=== PATIENT | male | born 1970 | race Caucasian/White ===

== ENCOUNTER 2024-04-30 08:46 | Emergency (ER) | payer SELFPAY ==
[2024-04-30] VITALS (23 sets, daily range): BP systolic 123–161; BP diastolic 73–90; PULSE 74–104; TEMP 36.7; O2SAT 94–99; BMI 29.8
--- NOTE | 2024-04-30 08:55 | ED.GENADUL1 ---
HPI HPI - General Adult General Chief complaint: Abdominal Pain Stated complaint: ABDOMINAL PAIN Time Seen by Provider: 04/30/24 08:53 Source: patient Mode of arrival: walk-in Limitations: no limitations History of Present Illness HPI narrative: Patient presenting to the emergency department for evaluation of not feeling well. Patient states that he went to urgent care sometime in January, was told he had pneumonia. He states that he was having shortness of breath, cough, white and green sputum production. Shortness of breath. They told him he had pneumonia, he states he did not do a chest x-ray, start him on a Z-Ezio. States that he felt better within a couple weeks. 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 He states that he improved over the first week. But he was still feeling winded, and states that whenever he was walking back and forth from his truck to work he started feeling short of breath. Patient states he went back to the urgent care, requested another Z-Ezio, they charged him $100 and discharged him and he said they did not do anything for him. Patient states that he still having coughing, shortness of breath that has been ongoing since January. Patient states that he now having abdominal pain, left side of the ribs, left upper quadrant, states whenever he has coughing fits related things he started taking some steroids unclear on the dose or how frequently he takes it, patient states that he is intermittently taking steroids. Patient has no leg pain, calf pain, calf swelling, leg swelling. States has not been having any fevers, chills. No other complaints at this time Related Data Previous Rx's ?Medication ?Instructions ?Recorded levofloxacin 750 mg tablet 750 mg PO DAILY 7 days #7 tabs 04/30/24 metronidazole 500 mg tablet 500 mg PO Q8H 7 days #21 tabs 04/30/24 Allergies Allergy/AdvReac Type Severity Reaction Status Date / Time No Known Drug Allergies Allergy Verified 04/30/24 08:49 Opioid HPI Opioid Management Most Recent Opioid Data: Last Pain Scale 6 04/30/24 09:19 Last MAR Pain Assessment 04/30/24 09:19 Review of Systems ROS Narrative Negative unless otherwise stated in HPI PFSH PFSH Social History Little interest or pleasure in doing things: not at all Feeling down, depressed, or hopeless: not at all Exam Narrative Exam Narrative: General: NAD, AAOx3, no distress Neck: Supple, no LAD, negative Kernig/Brudzinski, non meningeal, no bruit Respiratory: respiratory effort normal, speaks in full sentences, no tripod position, no accessory muscle use. Lungs clear to auscultation without rhonchi, wheezes, rales, tenderness to the mid axillary line inferior ribs Cardiac: Regular rhythm, tachycardic, no edema, regular s1/s2, no m/g/r Abdomen: Soft, nondistended, no tenderness was elicited. No evidence of fluid wave. No pulsatile masses on exam, rebound tenderness, Hitchcock sign or pain over Mcburney's point. Constitutional Vital Signs, click to edit/add: Last Vital Signs Temp 98.1 F 04/30/24 08:50 Pulse 74 04/30/24 11:40 Resp 21 H 04/30/24 11:40 BP 134/77 04/30/24 11:30 Pulse Ox 97 04/30/24 11:40 O2 Del Method Room Air 04/30/24 08:59 Course Vital Signs Vital signs: Vital Signs Temperature 98.1 F 04/30/24 08:50 Pulse Rate 104 H 04/30/24 08:50 Respiratory Rate 18 04/30/24 08:50 Blood Pressure 161/90 H 04/30/24 08:50 Pulse Oximetry 98 04/30/24 08:50 Oxygen Delivery Method Room Air 04/30/24 08:50 Temperature 98.1 F 04/30/24 08:50 Pulse Rate 74 04/30/24 11:40 Respiratory Rate 21 H 04/30/24 11:40 Blood Pressure 134/77 04/30/24 11:30 Pulse Oximetry 97 04/30/24 11:40 Oxygen Delivery Method Room Air 04/30/24 08:59 Medical Decision Making [facility] Narrative Medical decision making narrative: [facility] Patient with history as above presented with cough, shortness of breath, upper abdominal, rib pain. History obtained from patient Patient was nontoxic, stable. Ambulatory. Exam as above. EKG reviewed. Labs reviewed. Independently reviewed imaging. Reviewed external records. Differential diagnosis considered. Overall presentation is consistent with []. Low suspicion for []. Patient was treated with [] with improvement in symptoms. Consideration was given for admission, but the patient was stable for outpatient management. Disposition: Discussed need to follow up diagnostics, including incidental findings. Discharged with instructions to obtain outpatient follow up of patient's symptoms and findings, with strict return precautions if patient develops new or worsening symptoms. 919 it was noted that time the patient did meet for potential sepsis criteria. Lactate and blood cultures were added. I do not believe patient is septic, I believe his leukocytosis is likely reactionary from the steroids he is taking. 1205 D/w Sheree. He is here wednesday, would recommend admission, consulting colorectal surgery, and he will see patient on Wednesday, please add any CEA level, and hopefully arrange for colorectal surgery to obtain tissue sampling [address] Sanz, general surgery. He states he can see patient in the office tomorrow, office is open at 8 AM, clear liquids tomorrow, he will start bowel prep. He will do the scope as an outpatient on Wednesday, patient can be any preop area and see Dr. Bentley at that time as well. 1224 discussed with patient and daughter at bedside. They are in agreement with plan of care. Clear liquids tomorrow, they will go to the office and start bowel prep. Notified general surgery again at this time. He will start bowel prep after being seen in the office tomorrow, and then on Wednesday see oncology and general surgery for scope and further discussions. Medical Records Medical records reviewed: Yes I reviewed the patient's medical records Lab Data Lab results reviewed: Yes I reviewed the patient's lab results Labs: Lab Results 04/30/24 04/30/24 Range/Units 08:55 11:53 WBC 13.7 H (4.0-11.0) 10^3/uL RBC 4.66 L (4.70-6.10) 10^6/uL Hgb 12.6 L (14.0-18.0) g/dL Hct 39.9 L (42.0-54.0) % MCV 85.6 (80.0-94.0) fL MCH 27.0 (25.9-34.0) pg MCHC 31.6 (29.9-35.2) g/dL RDW 13.6 (11.0-15.0) % Plt Count 262 (150-450) 10^3/uL MPV 9.2 L (9.5-13.5) fL Neut % (Auto) 74.2 (43.0-75.0) % Lymph % (Auto) 15.4 L (20.5-60.0) % [place] % (Auto) 8.2 (1.7-12.0) % Eos % (Auto) 0.5 L (0.9-7.0) % Baso % (Auto) 0.3 (0.2-2.0) % Neut # (Auto) 10.1 H (1.4-6.5) 10^3/uL Lymph # (Auto) 2.1 (1.2-3.8) 10^3/uL [place] # (Auto) 1.1 H (0.3-0.8) 10^3/uL Eos # (Auto) 0.1 (0.0-0.7) 10^3/uL Baso # (Auto) 0.0 (0.0-0.1) 10^3/uL Abs Immat Gran (auto) 0.19 H (0.00-0.03) 10^3/uL Imm/Tot Granulo (auto) 1.4 H (0.0-0.5) % Sodium 138 (136-145) mmol/L Potassium 3.8 (3.5-5.1) mmol/L Chloride 101 (98-107) mmol/L Carbon Dioxide 29.0 (21.0-32.0) mmol/L Anion Gap 11.8 BUN 17.0 (7.0-18.0) mg/dL Creatinine 1.34 H (0.70-1.30) mg/dL Est GFR ( Amer) >60 (>=60 mL/min/1.73m^2) Est GFR (Non-Af Amer) 56 L (>=60 mL/min/1.73m^2) BUN/Creatinine Ratio 12.7 Glucose 83 (74-106) mg/dL Lactate 2.7 H* 0.7 (0.4-2.0) mmol/L Calcium 9.3 (8.5-10.1) mg/dL Total Bilirubin 0.5 (0.2-1.0) mg/dL Direct Bilirubin 0.1 (0.0-0.2) mg/dL AST 20 (15-37) U/L ALT 23 (16-63) U/L Alkaline Phosphatase 109 (46-116) U/L Troponin I High Sens <4.0 L (4.0-76.1) pg/mL NT-Pro-B Natriuret Pep 36.0 (<=900.0) pg/mL Total Protein 6.5 (6.4-8.2) g/dL Albumin 3.0 L (3.4-5.0) g/dL Globulin 3.5 g/dL Albumin/Globulin Ratio 0.9 Lipase 25.0 (16.0-77.0) U/L ECG Data Attestation: I personally reviewed and interpreted this ECG as follows: Discharge Plan Discharge Chief Complaint: Abdominal Pain Clinical Impression: Cancer Patient Disposition: Home, Self-Care Time of Disposition Decision: 12:27 Prescriptions / Home Meds: New levofloxacin 750 mg tablet 750 mg PO DAILY 7 Days Qty: 7 0RF metronidazole 500 mg tablet 500 mg PO Q8H 7 Days Qty: 21 0RF Print Language: Maltese Instructions: Colonoscopy (DC) Additional Instructions: Follow-up with general surgery tomorrow as discussed. Follow-up with general surgery and hematology oncology on Wednesday as well Referrals: Angela Bentley MD [Physician] - 05/02/24 (Follow-up on Wednesday during her colonoscopy usually seen at that time.) Shaun Sanz DO [Physician] - 05/01/24 (Follow-up in office as discussed.) Physician,Non-Staff, [Primary Care Provider] - 1 week
--- NOTE | 2024-04-30 08:56 | ECG_ITS ---
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
--- NOTE | 2024-04-30 09:06 | CT_ITS ---
The [address] [address] Patient Name: CT RODAS MRN: [id number] date: 1970 Sex: M Assigned Patient Location: ER Current Patient Location: ER Accession/Order Number: [id number] Exam Date: 04/30/2024 09:25 Report Date: 04/30/2024 11:41 At the request of: ROS ELI Procedure: CT abdomen pelvis w con CT ABDOMEN AND PELVIS WITH CONTRAST: 04/30/2024 9:25 AM EDT Clinical Data: abdominal pain Comparison: No previous Contrast-enhanced helically acquired data per standard protocol. The lack of oral contrast medium to some extent hampers evaluation of the bowel. All CT scans at this facility use dose modulation, iterative reconstruction, and/or weight based dosing when appropriate to reduce radiation dose to as low as reasonably achievable. FINDINGS: LOWER THORAX: See today's chest CT report. LIVER: Multiple hypodense foci. These are of low to intermediate density and a few are mildly vaguely defined. These are in both lobes. The largest is peripherally on the right and measures 34 mm. SPLEEN:No acute findings. GB/BILIARY: No acute findings at CT PANCREAS: No acute findings. ADRENALS: No acute findings. KIDNEYS/URETERS: Kidneys are symmetric in size and overall density as examined in a single phase only. Tiny hypodense well-defined foci right kidney. 8mm well-defined focus mid pole left kidney. There is no hydronephrosis or hydroureter. VESSELS: No AAA. Portal veins are patent. SMV and splenic vein are patent. IMV is patent. ABDOMINAL NODES: No adenopathy. PELVIC NODES: No distinct evidence of adenopathy. BLADDER: No acute findings. REPRODUCTIVE: Prostate is mildly prominent. Seminal vesicles are symmetric. PERITONEUM: No free air. No free fluid. EXTRAPERITONEUM: No acute findings. BOWEL: No GI obstruction. There is heterogeneous circumferential thickening of the proximal descending colon extending over a longitudinal segment of 5 cm. The air column in this portion of the colon is narrowed. Modest amount stool within aspects of the colon. Moderate amount of ingested debris and some air in the stomach. BODY WALL: No acute findings. BONES: No acute findings. OTHER: None CT/CT abdomen pelvis w con IMPRESSION: 1. Constellation of findings as described. The likely is a colonic malignancy in the proximal descending colon with associated metastatic disease in the liver.. 2. Likely, small renal cysts. Electronically authenticated by: SLOANE SCHMITZ Date: 04/30/2024 11:41
--- NOTE | 2024-04-30 09:07 | CT_ITS ---
[address] [address] Patient Name: TC RODAS MRN: [id number] date: 1970 Sex: M Assigned Patient Location: ER Current Patient Location: .[facility] Accession/Order Number: [id number] Exam Date: 04/30/2024 09:25 Report Date: 04/30/2024 10:16 At the request of: ROS ELI Procedure: CT angio chest CT ANGIOGRAM THORACIC AORTA: INDICATION: cough, SOB, tachy. COMPARISON: None available. TECHNIQUE: Helical CT angiography was performed of the thoracic aorta after the administration of intravenous contrast. Noncontrast imaging was not performed. MIP (maximum intensity projection) images were performed. Dose reduction techniques were achieved by using automated exposure control and/or adjustment of mA and/or kV according to patient size and/or use of iterative reconstruction technique. FINDINGS: THORACIC AORTA: The thoracic aorta is normal in course and caliber, with no evidence of dissection. PULMONARY ARTERIES: No pulmonary artery filling defects. HEART/PERICARDIUM: Unremarkable. MEDIASTINAL/HILAR LYMPH NODES: No lymphadenopathy. ESOPHAGUS: Unremarkable. PLEURAL CAVITY: No pleural effusion or pneumothorax. LUNGS/AIRWAYS: There is bibasilar subsegmental atelectasis. There is a 4 mm nodular density in the right middle lobe with possible cavitation (series 4, image 50). CHEST WALL/AXILLA/LOWER NECK: Unremarkable. VISUALIZED UPPER ABDOMEN: There are ill-defined hypodense lesions in the liver measuring up to 3.6 cm suspicious for metastatic disease. BONES: No acute process. CT/CT angio chest IMPRESSION: 1. Ill-defined hypodense lesions in the liver highly suspicious for metastatic disease. 2. No evidence of pulmonary embolism or thoracic aortic dissection. 3. A 4 mm nodular density in the right middle lobe with possible cavitation. Electronically authenticated by: JOSE SPEAR Date: 04/30/2024 10:16
[2024-04-30 09:14] LABS: Basophils Percent Auto 0.3 % (0.2-2.0); Eosinophils Absolute Auto 0.1 10^3/uL (0.0-0.7); Eosinophils Percent Auto 0.5 % (0.9-7.0); Hematocrit 39.9 % (42.0-54.0); Hemoglobin 12.6 g/dL (14.0-18.0); Immature Granulocytes Abs Auto 0.19 10^3/uL (0.00-0.03); Immature Granulocytes Pct Auto 1.4 % (0.0-0.5); Lymphocytes Absolute Auto 2.1 10^3/uL (1.2-3.8); Lymphocytes Percent Auto 15.4 % (20.5-60.0); Mean Corpuscular HGB Conc 31.6 g/dL (29.9-35.2); Mean Corpuscular Volume 85.6 fL (80.0-94.0); Mean Platelet Volume 9.2 fL (9.5-13.5); Monocytes Absolute Auto 1.1 10^3/uL (0.3-0.8); Monocytes Percent Auto 8.2 % (1.7-12.0); Neutrophils Absolute Auto 10.1 10^3/uL (1.4-6.5); Neutrophils Percent Auto 74.2 % (43.0-75.0); Platelet Count 262 10^3/uL (150-450); Red Blood Count 4.66 10^6/uL (4.70-6.10); Red Cell Distribution Width 13.6 % (11.0-15.0); White Blood Count 13.7 10^3/uL (4.0-11.0)
[2024-04-30] MEDS: MORPHINE SULFATE 4 MG/ML VIAL IV (09:19)
[2024-04-30 09:39] LABS: Alanine Aminotransferase 23 U/L (16-63); Albumin Globulin Ratio 0.9; Alkaline Phosphatase 109 U/L (46-116); Anion Gap 11.8; Aspartate Amino Transferase 20 U/L (15-37); BUN Creatinine Ratio 12.7; Bilirubin Direct 0.1 mg/dL (0.0-0.2); Bilirubin Total 0.5 mg/dL (0.2-1.0); Calcium 9.3 mg/dL (8.5-10.1); Chloride 101 mmol/L (98-107); Estimated GFR (African America >60 (>=60 mL/min/1.73m^2); Estimated GFR (Non-African Ame 56 (>=60 mL/min/1.73m^2); Globulin 3.5 g/dL; Glucose 83 mg/dL (74-106); Potassium 3.8 mmol/L (3.5-5.1); Sodium 138 mmol/L (136-145); Total Protein 6.5 g/dL (6.4-8.2); Troponin I High Sensitivity <4.0 pg/mL (4.0-76.1)
[2024-04-30 09:44] LABS: Lactate/Lactic Acid 2.7 mmol/L (0.4-2.0)
[2024-04-30] MEDS: 0.9 % SODIUM CHLORIDE 1,000 ML 999 ML IV (09:50)
[2024-04-30] MEDS: AMPICILLIN SODIUM/SULBACTAM NA 1.5 GM in 0.9 % SODIUM CHLORIDE 50 ML IV (11:26)
[2024-04-30 12:17] LABS: Lactate/Lactic Acid 0.7 mmol/L (0.4-2.0)
[2024-04-30] MEDS: HYDROCODONE/ACET 5-325 MG TABLET 1 TAB PO (12:54)
== END 2024-04-30 12:58 | disposition home or self-care (01) ==
PROVIDERS: Emergency Provider Emergency Medicine
DX: C80.1 Malignant (primary) neoplasm, unspecified (principal)
CPT/HCPCS: 36415; 71275; 74177; 80053; 80076; 82378; 83605; 83690; 83880; 84484; 85025; 87040; 93005; 96365; 96375; 99285; J0295; J2270; Q9967

== ENCOUNTER 2024-05-02 06:18 | Day surgery (SDC) | payer MEDICAID, SELFPAY ==
[2024-05-02 06:25] VITALS: BP 134/74; PULSE 104; TEMP 36.4; O2SAT 95; BMI 29.6
[2024-05-02] MEDS: 0.9 % SODIUM CHLORIDE 500 ML 50 ML IV (07:17)
[2024-05-02 07:58] VITALS: BP 112/78; PULSE 82; TEMP 36.1; O2SAT 97
[2024-05-02 08:13] VITALS: BP 133/83; PULSE 78; O2SAT 97
[2024-05-02 08:33] VITALS: BP 126/78; PULSE 76; O2SAT 98
--- NOTE | 2024-05-02 15:40 | P.ON_ITS ---
Date of procedure: 05/02/24 Pre-op diagnosis: diagnostic colonoscopy Post-op diagnosis: same as pre-op (nearly obstructing colon mass at splenic flexure approx 60cm) Procedure: Previous colonoscopy: never procedure: diagnostic colonoscopy with biopsies The patient was given IV conscious sedation.? The patient's SPO2 remained above 90% throughout the procedure. The colonoscope was inserted per rectum and advanced under direct vision to the splenic flexure unable to pass large mass that was there.?The prep was adequate.? Findings: splenic flexure/Descending/Sigmoid colon: large circumferential mass and thickening of the colon with friable edges, cold forcep biopies taken, approx at 60cm Rectum/Anus: examined in normal and retroflexed positions and was normal Withdrawal Time was (minutes): 30 The colon was decompressed and the scope was removed.? The patient tolerated the procedure well. Recommendations/Plan: 1.? Appointment coordinated with oncologist for today given liver lesions and advanced local process in colon 2.? F/U Biopsies 3.? Discussed possible need for urgent surgery for obstructive symptoms vs referral to GI for stenting 4.? Discussed with oncology, patient to be presented at [facility] [[email or web address]] tumor board and possible early surgery there then chemo Anesthesia: MAC Surgeon: Shaun Sanz Estimated blood loss (mL): 5 Pathology: other (splenic flexure mass ) Condition: stable Disposition: PACU
== END 2024-05-02 08:40 | disposition home or self-care (01) ==
PROVIDERS: Visit Provider Surgery
PROC: (CPT 00811; principal; 2024-05-02 07:30)
DX: C18.5 Malignant neoplasm of splenic flexure (principal); I10 Essential (primary) hypertension; C18.9 Malignant neoplasm of colon, unspecified; C78.7 Secondary malignant neoplasm of liver and intrahepatic bile duct; R11.2 Nausea with vomiting, unspecified; F17.220 Nicotine dependence, chewing tobacco, uncomplicated; Z80.3 Family history of malignant neoplasm of breast
CPT/HCPCS: 00811; 45331; G0463; J2704

== ENCOUNTER 2024-05-16 07:32 | Outpatient (RCR) | payer SELFPAY | END 2024-05-25 23:59 | disposition home or self-care (01) | LOC: HEMC 07:32 | PROVIDERS: Visit Provider Internal Medicine Hematology & Oncology | DX: C18.9 Malignant neoplasm of colon, unspecified (principal); C78.7 Secondary malignant neoplasm of liver and intrahepatic bile duct; R11.2 Nausea with vomiting, unspecified; F17.220 Nicotine dependence, chewing tobacco, uncomplicated; Z80.3 Family history of malignant neoplasm of breast | CPT/HCPCS: G0463 ==

== ENCOUNTER 2024-05-29 14:32 | Outpatient (OUT) | payer MEDICAID, SELFPAY ==
--- NOTE | 2024-05-29 14:49 | PE_ITS ---
The [address] [address] Patient Name: CT RODAS MRN: [id number] date: 1970 Sex: M Assigned Patient Location: PETCT Current Patient Location: PETCT Accession/Order Number: [id number] Exam Date: 05/29/2024 14:49 Report Date: 06/03/2024 13:47 At the request of: ROXANN JOHNSON Procedure: PET skull to mid thigh PET/CT: HISTORY: Colorectal cancer. COMPARISON: CT angiogram chest, CT abdomen and pelvis 04/30/2024. TECHNIQUE: The patient was injected with 13.84 mCi of F-18 fluorodeoxyglucose (FDG), and an emission scan was performed from the base of the skull to the mid thigh. Noncontrast CT was performed for attenuation correction and anatomic localization. The blood glucose level was 101 mg/dl. The uptake time was 55 minutes. FINDINGS: HEAD AND NECK: There is a physiologic distribution of activity, with no hypermetabolic foci. CHEST: The SUV max of the mediastinum = 3.0 using the patient's body weight as the normalization method. The previously noted 4 mm right middle lobe pulmonary nodule is faintly seen on image 106 of this study and below resolution limits of PET. There is a physiologic distribution of activity. ABDOMEN AND PELVIS: There are multiple hypermetabolic masses throughout the liver including for example in the right hepatic lobe on image 124, SUV max 12.5 measuring 4.4 x 3.5 cm and in the left hepatic lobe on image 141, SUV max 14.1 measuring 4.3 x 2.9 cm. There is a hypermetabolic focus in the splenic hilum on image 147 with SUV max 16.4. There is no definite CT correlate. The previously noted mass in the descending colon is hypermetabolic, image 170, SUV max 24.7. There is a new stent in place within the descending colon. There is evidence of invasion into the surrounding left paracolic gutter with a hypermetabolic ill-defined opacity on image 170 with SUV max 18.6. There is a hypermetabolic left mid omental mass on image 181 with SUV max 18.2 measuring 2.8 x 2.2 cm. There is a hypermetabolic nodular density in the right pelvis on image 244, SUV max 22.2 measuring 1.7 x 1.3 cm. There is a hypermetabolic nodule in the right perirectal space on image 258, SUV max 21.9 measuring 1.2 x 1.2 cm. MUSCULOSKELETAL SYSTEM: There is a physiologic distribution of activity within the bone marrow, with no hypermetabolic foci. ADDITIONAL CT FINDINGS: There is a right chest central venous access port with tip in the SVC. There is mild atherosclerotic coronary artery calcification. There is mild pleural thickening or trace bilateral pleural effusions. The spleen is enlarged at 13 cm AP. The prostate gland is enlarged at 5.8 cm transverse. There is mild bladder wall thickening which may be due to underdistention, chronic outlet obstruction or cystitis. There is a small fat-containing left inguinal hernia. PET/PET skull to mid thigh IMPRESSION: 1. Hypermetabolic mass in the descending colon consistent with malignancy with invasion into the adjacent left paracolic gutter. 2. Hypermetabolic masses in the left omentum, the right pelvis and in the right perirectal space consistent with peritoneal carcinomatosis. 3. Hypermetabolic focus in the splenic hilum consistent with a metastasis. 4. Additional CT findings as described above. A previously noted 4 mm right middle lobe pulmonary nodule is below resolution limits of PET. Recommend attention on follow-up. Electronically authenticated by: TATIANA DICKSON Date: 06/03/2024 13:47
== END 2024-05-29 14:33 | disposition home or self-care (01) ==
LOC: PETCT 14:32
PROVIDERS: Visit Provider Internal Medicine Hematology & Oncology
DX: C18.9 Malignant neoplasm of colon, unspecified (principal); C78.7 Secondary malignant neoplasm of liver and intrahepatic bile duct; Z51.11 Encounter for antineoplastic chemotherapy; R11.2 Nausea with vomiting, unspecified; F17.220 Nicotine dependence, chewing tobacco, uncomplicated; R06.02 Shortness of breath
CPT/HCPCS: 78815; 99211; A9552; G0463

== ENCOUNTER 2024-06-15 07:23 | Outpatient (RCR) | payer MEDICAID, SELFPAY ==
[2024-05-30 10:19] VITALS: BP 123/80; PULSE 78; TEMP 36.9; O2SAT 97
[2024-05-30 10:48] LABS: Basophils Percent Auto 0.3 % (0.2-2.0); Eosinophils Absolute Auto 0.3 10^3/uL (0.0-0.7); Eosinophils Percent Auto 2.8 % (0.9-7.0); Hematocrit 36.4 % (42.0-54.0); Hemoglobin 11.3 g/dL (14.0-18.0); Lymphocytes Absolute Auto 1.6 10^3/uL (1.2-3.8); Lymphocytes Percent Auto 16.8 % (20.5-60.0); Mean Corpuscular Hemoglobin 25.7 pg (25.9-34.0); Mean Corpuscular Volume 82.9 fL (80.0-94.0); Mean Platelet Volume 9.2 fL (9.5-13.5); Monocytes Absolute Auto 0.9 10^3/uL (0.3-0.8); Monocytes Percent Auto 9.4 % (1.7-12.0); Neutrophils Absolute Auto 6.7 10^3/uL (1.4-6.5); Neutrophils Percent Auto 69.7 % (43.0-75.0); Platelet Count 295 10^3/uL (150-450); Red Blood Count 4.39 10^6/uL (4.70-6.10); Red Cell Distribution Width 13.4 % (11.0-15.0); White Blood Count 9.7 10^3/uL (4.0-11.0)
[2024-05-30 10:58] LABS: Alanine Aminotransferase 35 U/L (16-63); Albumin Globulin Ratio 0.7; Albumin Level 2.7 g/dL (3.4-5.0); Alkaline Phosphatase 136 U/L (46-116); Anion Gap 13.2; Aspartate Amino Transferase 25 U/L (15-37); BUN Creatinine Ratio 13.3; Bilirubin Total 0.4 mg/dL (0.2-1.0); Calcium 8.6 mg/dL (8.5-10.1); Carbon Dioxide 25.7 mmol/L (21.0-32.0); Chloride 103 mmol/L (98-107); Estimated GFR (African America >60 (>=60 mL/min/1.73m^2); Estimated GFR (Non-African Ame 59 (>=60 mL/min/1.73m^2); Globulin 3.8 g/dL; Glucose 94 mg/dL (74-106); Potassium 3.9 mmol/L (3.5-5.1); Sodium 138 mmol/L (136-145); Total Protein 6.5 g/dL (6.4-8.2)
[2024-05-30] MEDS: [UNRECOGNIZED DRUG - OTHER] IV (11:43)
[2024-05-30] MEDS: DEXAMETHASONE SODIUM PHOSPHATE IV (11:43)
[2024-05-30] MEDS: ONDANSETRON HCL IV (11:43)
[2024-05-30] MEDS: 0.9 % SODIUM CHLORIDE 250 ML 10 ML IV (11:44)
[2024-05-30] MEDS: DEXTROSE 5 % IN WATER 250 ML 50 ML IV (12:30)
[2024-05-30] MEDS: OXALIPLATIN IV (12:39)
[2024-05-30] MEDS: DEXTROSE 5% IV ×2 (12:39)
[2024-05-30] MEDS: LEUCOVORIN CALCIUM IV (12:39)
[2024-05-30] MEDS: WATER IV ×2 (12:39)
[2024-05-30] MEDS: FLUOROURACIL 1,000 MG/20 ML VIAL 900 MG IVP (14:48)
[2024-05-30] MEDS: FLUOROURACIL IV (15:04)
[2024-05-30] MEDS: SODIUM CHLORIDE 0.9% IV (15:04)
[2024-05-30 15:15] VITALS: BP 118/74; PULSE 70; TEMP 36.8; O2SAT 97
--- NOTE | 2024-05-30 15:31 | PC.NURSE ---
1019: Pt. to [facility] amb. for chemo treatment and office visit, accompanied by daughter. Weight obtained. Seated in recliner. VSS. Using sterile technique, right ant. chest port accessed per. MIKE Sandoval. Flushes easily with good blood return. Labs obtained as ordered. Pt. tolerated without c/o. Assessment completed. Pt. given [place] juice. Denies needs. 1100: Dr. Bentley in to see pt. 1143: Labs WNL to begin treatment. Pre-meds initiated at this time. Pt. denies needs. 1205: Pre-meds completed. 1239: Oxaliplatin and Leucovorin infusion initiated concurrently as ordered. Lunch tray ordered for pt. Informed pt. of abnormal s&s to watch for while receiving chemo. Instructed to notify this RN if occurs. Pt. and pt.'s daughter verbalize understanding. 1300: Tolerating infusion without c/o. Port site remains clear. Denies c/o or needs. Attempts to nap 1442: Oxaliplatin and Leucovorin completed without adverse reaction. 1448: 5-Fu, 900mg administered IVP over 7minutes at this time. Pt. without c/o. 1504: 5-FU cont. infusion pump initiated at this time. Clamps open. Secured with pouch attached around waist. Instructed pt. to keep clamps open and do not disconnect pump from port. Keep dry. Pt. relays understanding. Informed pt. what tie to return on for pump removal. Relays understanding. Reminded pt. and pt's daughter of adverse reactions to watch for and seek medical attention if needed. Both relay understanding. 1515: Pt. and daughter d/c'd amb. to home.
[2024-06-01 13:00] VITALS: BP 150/89; PULSE 74; TEMP 36.9; O2SAT 97
[2024-06-01] MEDS: SODIUM CHLORIDE 0.9% IV (13:47)
[2024-06-01] MEDS: LORAZEPAM 2 MG/ML VIAL 0.5 MG IV (13:47)
[2024-06-01] MEDS: ONDANSETRON HCL IV (13:47)
[2024-06-01] MEDS: 0.9 % SODIUM CHLORIDE 1,000 ML 1000 ML IV (13:48)
--- NOTE | 2024-06-01 14:18 | PC.NURSE ---
1300: Pt. to [facility] amb. accompanied by son, for chemo pump removal. Relays n/v over last 24hrs. with extreme fatigue. Seated in recliner. Dr. Bentley notified per text of pt. n/v. Chemo pump flat with no obvious fluid remaining in ball. Port flushed with saline. Pt. given ensure clear to try to sip on. Pt. compliant. Relays sensitivity to cold in mouth. Informed pt. of side effect of Oxaliplatin. Instructed to refrain from eating,drinking, or touching cold items. 1317: Dr. Bentley replys via text with new order for pt. Pt. and pts. son notified of plan of care. Both relay understanding. 1347: Medicated with Ativan, 0.5mg ivp, Zofran 8mg IVPB, and 0.9% NS 1000ML infusion initiated at this time as ordered. Pt. drank Ensure without c/o. Offered food, but declines. 1410: Pt. resting with eyes closed. Resp. even and non-labored. IVF cont.
[2024-06-01] MEDS: HEPARIN SODIUM (PORCINE) PF LOCK FLUSH 500 UNIT/5 ML SYRINGE IV (15:17)
--- NOTE | 2024-06-01 15:20 | PC.NURSE ---
1517:Therapy completed without adverse reaction. Denies nausea at this time. Port flushed with Heparin flush, see documentation. Trace bleeding to site, covered with dressing. Pt. tolerated without c/o. Several Ensure clear protein drinks sent with pt. D/c'd amb. to home with son.
[2024-06-06 11:45] LABS: Alanine Aminotransferase 39 U/L (16-63); Albumin Globulin Ratio 0.9; Albumin Level 3.2 g/dL (3.4-5.0); Alkaline Phosphatase 127 U/L (46-116); Anion Gap 14.5; Aspartate Amino Transferase 24 U/L (15-37); BUN Creatinine Ratio 7.4; Bilirubin Total 0.4 mg/dL (0.2-1.0); Calcium 8.8 mg/dL (8.5-10.1); Carbon Dioxide 26.9 mmol/L (21.0-32.0); Chloride 104 mmol/L (98-107); Estimated GFR (African America >60 (>=60 mL/min/1.73m^2); Estimated GFR (Non-African Ame >60 (>=60 mL/min/1.73m^2); Globulin 3.6 g/dL; Glucose 90 mg/dL (74-106); Potassium 4.4 mmol/L (3.5-5.1); Sodium 141 mmol/L (136-145); Total Protein 6.8 g/dL (6.4-8.2)
[2024-06-06 11:52] LABS: Basophils Percent Auto 0.3 % (0.2-2.0); Eosinophils Percent Auto 9.5 % (0.9-7.0); Hematocrit 37.4 % (42.0-54.0); Hemoglobin 11.9 g/dL (14.0-18.0); Immature Granulocytes Abs Auto 0.08 10^3/uL (0.00-0.03); Immature Granulocytes Pct Auto 0.8 % (0.0-0.5); Lymphocytes Absolute Auto 1.9 10^3/uL (1.2-3.8); Mean Corpuscular HGB Conc 31.8 g/dL (29.9-35.2); Mean Corpuscular Volume 81.8 fL (80.0-94.0); Mean Platelet Volume 9.2 fL (9.5-13.5); Monocytes Absolute Auto 0.5 10^3/uL (0.3-0.8); Monocytes Percent Auto 5.3 % (1.7-12.0); Neutrophils Absolute Auto 6.5 10^3/uL (1.4-6.5); Neutrophils Percent Auto 65.1 % (43.0-75.0); Platelet Count 287 10^3/uL (150-450); Red Blood Count 4.57 10^6/uL (4.70-6.10); Red Cell Distribution Width 13.4 % (11.0-15.0)
[2024-06-13] MEDS: 0.9 % SODIUM CHLORIDE 250 ML 100 ML IV (10:00)
[2024-06-13 10:32] VITALS: BP 135/80; PULSE 84; TEMP 36.5; O2SAT 98
[2024-06-13 10:49] LABS: Basophils Percent Auto 0.4 % (0.2-2.0); Eosinophils Absolute Auto 0.4 10^3/uL (0.0-0.7); Eosinophils Percent Auto 6.8 % (0.9-7.0); Hematocrit 36.3 % (42.0-54.0); Hemoglobin 11.2 g/dL (14.0-18.0); Immature Granulocytes Abs Auto 0.02 10^3/uL (0.00-0.03); Immature Granulocytes Pct Auto 0.4 % (0.0-0.5); Lymphocytes Absolute Auto 1.4 10^3/uL (1.2-3.8); Lymphocytes Percent Auto 24.8 % (20.5-60.0); Mean Corpuscular HGB Conc 30.9 g/dL (29.9-35.2); Mean Corpuscular Hemoglobin 25.6 pg (25.9-34.0); Mean Corpuscular Volume 83.1 fL (80.0-94.0); Monocytes Absolute Auto 0.7 10^3/uL (0.3-0.8); Monocytes Percent Auto 12.1 % (1.7-12.0); Neutrophils Percent Auto 55.5 % (43.0-75.0); Platelet Count 228 10^3/uL (150-450); Red Blood Count 4.37 10^6/uL (4.70-6.10); Red Cell Distribution Width 14.3 % (11.0-15.0); White Blood Count 5.4 10^3/uL (4.0-11.0)
[2024-06-13 10:58] LABS: Alanine Aminotransferase 30 U/L (16-63); Albumin Globulin Ratio 0.8; Albumin Level 2.8 g/dL (3.4-5.0); Alkaline Phosphatase 121 U/L (46-116); Anion Gap 13.1; Aspartate Amino Transferase 18 U/L (15-37); BUN Creatinine Ratio 11.4; Bilirubin Total 0.3 mg/dL (0.2-1.0); Calcium 8.2 mg/dL (8.5-10.1); Carbon Dioxide 26.8 mmol/L (21.0-32.0); Chloride 105 mmol/L (98-107); Estimated GFR (African America >60 (>=60 mL/min/1.73m^2); Estimated GFR (Non-African Ame >60 (>=60 mL/min/1.73m^2); Globulin 3.4 g/dL; Glucose 104 mg/dL (74-106); Potassium 3.9 mmol/L (3.5-5.1); Sodium 141 mmol/L (136-145); Total Protein 6.2 g/dL (6.4-8.2)
[2024-06-13] MEDS: [UNRECOGNIZED DRUG - OTHER] IV (12:33)
[2024-06-13] MEDS: DEXAMETHASONE SODIUM PHOSPHATE IV (12:33)
[2024-06-13] MEDS: ONDANSETRON HCL IV (12:33)
--- NOTE | 2024-06-13 12:44 | PC.NURSE ---
1245 Tolerating infusion without any issues. laid back in recliner, offers no complaints.
[2024-06-13] MEDS: WATER IV ×2 (12:57)
[2024-06-13] MEDS: OXALIPLATIN IV (12:57)
[2024-06-13] MEDS: LEUCOVORIN CALCIUM IV (12:57)
[2024-06-13] MEDS: DEXTROSE 5% IV ×2 (12:57)
[2024-06-13] MEDS: DEXTROSE 5 % IN WATER 250 ML 30 ML IV (13:00)
[2024-06-13] MEDS: FLUOROURACIL IV (13:00)
[2024-06-13] MEDS: SODIUM CHLORIDE 0.9% IV (13:00)
--- NOTE | 2024-06-13 13:28 | PC.NURSE ---
tolerating infusion without any issues. Daughter at bedside. vanessa stevenson ordered for lunch
[2024-06-13] MEDS: FLUOROURACIL 1,000 MG/20 ML VIAL 900 MG IVP (15:03)
--- NOTE | 2024-06-13 16:07 | PC.NURSE ---
1503 5fu 2 day pump applied to port a cath quiñonez needle, all clamps open. placed in carrier pack. Released ambulatory
[2024-06-15 12:50] VITALS: BP 127/79; PULSE 78; TEMP 36.6; O2SAT 97
[2024-06-15] MEDS: SODIUM CHLORIDE 0.9% IV (13:20)
[2024-06-15] MEDS: ONDANSETRON HCL IV (13:20)
[2024-06-15] MEDS: 0.9 % SODIUM CHLORIDE 1,000 ML 1000 ML IV (13:20)
[2024-06-15] MEDS: HEPARIN SODIUM (PORCINE) PF LOCK FLUSH 500 UNIT/5 ML SYRINGE IV (14:45)
--- NOTE | 2024-06-15 15:23 | PC.NURSE ---
Pt here for 5FU pump d/c. C/o nausea. Dr. Bentley ordered 1L NS bolus and Zofran 8mg IVPB. Pt also instructed to alternate Compazine/Zofran around the clock at home x 2-3 days or until nausea subsides, and continue Scopalamine patch as well. Pt tolerated infusion w/o incident and d/c'd in stable condition.
== END 2024-06-24 23:59 | disposition home or self-care (01) ==
LOC: HEMC 07:23
PROVIDERS: Visit Provider Internal Medicine Hematology & Oncology
DX: Z51.11 Encounter for antineoplastic chemotherapy (principal); C18.9 Malignant neoplasm of colon, unspecified; C78.7 Secondary malignant neoplasm of liver and intrahepatic bile duct; R11.2 Nausea with vomiting, unspecified; F17.220 Nicotine dependence, chewing tobacco, uncomplicated; R06.02 Shortness of breath
CPT/HCPCS: 36415; 36591; 80053; 82378; 82728; 83540; 85025; 96365; 96367; 96368; 96375; 96411; 96413; 96415; 96416; 96523; 99211; G0463; J0640; J1100; J1642; J2060; J2405; J9190; J9263

== ENCOUNTER 2024-06-26 13:55 | Emergency (ER) | payer MEDICAID, SELFPAY ==
[2024-06-26] VITALS (30 sets, daily range): BP systolic 72–129; BP diastolic 35–79; PULSE 120–152; TEMP 37.7; O2SAT 76–100; BMI 28.2
--- NOTE | 2024-06-26 14:04 | ECG_ITS ---
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
--- NOTE | 2024-06-26 14:04 | CT_ITS ---
[address] [address] Patient Name: CT RODAS MRN: [id number] date: 1970 Sex: M Assigned Patient Location: ER Current Patient Location: Accession/Order Number: [id number] Exam Date: 06/26/2024 15:00 Report Date: 06/26/2024 15:51 At the request of: ELMER SALEH Procedure: CT angio chest EXAMINATION: CT angio chest, CT abdomen pelvis w con HISTORY: chest pain, PE , lower abdominal pain, epigastric pain, nausea and vomiting COMPARISON: CTA chest 04/30/2024, CT abdomen pelvis 04/30/2024 TECHNIQUE: After obtaining the patient's consent, CT images of the chest, abdomen and pelvis were obtained with non-ionic intravenous contrast material. Axial, Coronal, and Sagittal images. Multi-planar reformatted/3-D images were created to optimize visualization of vascular anatomy. Dose reduction techniques were achieved by using automated exposure control and/or adjustment of mA and/or kV according to patient size and/or use of iterative reconstruction technique. FINDINGS: PULM VASC: Sagittal embolism on right extending into the upper, lower, and middle lobes with significant embolism burden. Moderate amount of nonocclusive thrombus within left lower lobe artery extending into the basilar segments and into the middle lobe artery. LUNGS: Infiltrates versus atelectasis within the basilar segments of the lower lobes bilaterally, moderate on right; trace amount left. PLEURA: No mass, effusion, or pneumothorax. MONICA: No mass or adenopathy. MEDIASTINUM: No mass or adenopathy. CARDIAC: No enlargement, pericardial effusion, or pericardial thickening. No aortic aneurysm or dissection. CHEST WALL: Right chest wall Port-A-Cath with distal tip in the right atrium. LIVER: Multiple rounded hypodense lesions; nonspecific but suspicious for metastatic disease. Slight decrease in size of the lesions.. BILIARY: No visible dilatation or calcification. PANCREAS: No lesion, fluid collection, ductal dilatation, or atrophy. SPLEEN: No enlargement or focal lesion. ADRENALS: No mass or enlargement. KIDNEYS: No mass, obstruction, or calcification. BOWEL/MESENTERY: Irregular wall thickening of the splenic flexure of the colon with intraluminal stent in place. AORTA: No aneurysm or dissection. RETROPERITONEUM: No mass or adenopathy. LYMPHNODES: No pelvic lymphadenopathy. BLADDER: No stones or focal wall thickening. PELVIC ORGANS: Slightly heterogeneous and slightly prominent.. ABDOMINAL WALL: No mass or hernia. BONES: No bony lesion or fracture. OTHER: Negative. CT/CT angio chest IMPRESSION: 1. Bilateral pulmonary emboli; large burden on right, moderate on left. Minimal heart strain. 2. Right greater than left bibasilar atelectasis versus infiltrates. 3. Liver lesions suggestive of metastatic disease; slightly decreased in size. 4. Irregular wall thickening of splenic flexure of colon compatible with neoplasm; slightly decreased in volume. Intraluminal stent is in place. Findings called to the emergency department to be relayed to Dr. Armstrong. Electronically authenticated by: TATIANA RAMIREZ Date: 06/26/2024 15:51
--- NOTE | 2024-06-26 14:09 | CT_ITS ---
[address] [address] Patient Name: CT RODAS MRN: [id number] date: 1970 Sex: M Assigned Patient Location: ER Current Patient Location: Accession/Order Number: [id number] Exam Date: 06/26/2024 15:00 Report Date: 06/26/2024 15:51 At the request of: ELMER SALEH Procedure: CT abdomen pelvis w con EXAMINATION: CT angio chest, CT abdomen pelvis w con HISTORY: chest pain, PE , lower abdominal pain, epigastric pain, nausea and vomiting COMPARISON: CTA chest 04/30/2024, CT abdomen pelvis 04/30/2024 TECHNIQUE: After obtaining the patient's consent, CT images of the chest, abdomen and pelvis were obtained with non-ionic intravenous contrast material. Axial, Coronal, and Sagittal images. Multi-planar reformatted/3-D images were created to optimize visualization of vascular anatomy. Dose reduction techniques were achieved by using automated exposure control and/or adjustment of mA and/or kV according to patient size and/or use of iterative reconstruction technique. FINDINGS: PULM VASC: Sagittal embolism on right extending into the upper, lower, and middle lobes with significant embolism burden. Moderate amount of nonocclusive thrombus within left lower lobe artery extending into the basilar segments and into the middle lobe artery. LUNGS: Infiltrates versus atelectasis within the basilar segments of the lower lobes bilaterally, moderate on right; trace amount left. PLEURA: No mass, effusion, or pneumothorax. MONICA: No mass or adenopathy. MEDIASTINUM: No mass or adenopathy. CARDIAC: No enlargement, pericardial effusion, or pericardial thickening. No aortic aneurysm or dissection. CHEST WALL: Right chest wall Port-A-Cath with distal tip in the right atrium. LIVER: Multiple rounded hypodense lesions; nonspecific but suspicious for metastatic disease. Slight decrease in size of the lesions.. BILIARY: No visible dilatation or calcification. PANCREAS: No lesion, fluid collection, ductal dilatation, or atrophy. SPLEEN: No enlargement or focal lesion. ADRENALS: No mass or enlargement. KIDNEYS: No mass, obstruction, or calcification. BOWEL/MESENTERY: Irregular wall thickening of the splenic flexure of the colon with intraluminal stent in place. AORTA: No aneurysm or dissection. RETROPERITONEUM: No mass or adenopathy. LYMPHNODES: No pelvic lymphadenopathy. BLADDER: No stones or focal wall thickening. PELVIC ORGANS: Slightly heterogeneous and slightly prominent.. ABDOMINAL WALL: No mass or hernia. BONES: No bony lesion or fracture. OTHER: Negative. CT/CT abdomen pelvis w con IMPRESSION: 1. Bilateral pulmonary emboli; large burden on right, moderate on left. Minimal heart strain. 2. Right greater than left bibasilar atelectasis versus infiltrates. 3. Liver lesions suggestive of metastatic disease; slightly decreased in size. 4. Irregular wall thickening of splenic flexure of colon compatible with neoplasm; slightly decreased in volume. Intraluminal stent is in place. Findings called to the emergency department to be relayed to Dr. Armstrong. Electronically authenticated by: TATIANA RAMIREZ Date: 06/26/2024 15:51
--- NOTE | 2024-06-26 14:12 | ED_ITS ---
HPI HPI - General Adult General Chief complaint: Abdominal Pain Stated complaint: GENERAL WEAKNESS/ ADBOMINAL PAIN/ VOMITTING Time Seen by Provider: 06/26/24 13:56 Source: patient Mode of arrival: Wheelchair Limitations: no limitations History of Present Illness HPI narrative: Patient is a 53-year-old male with recent diagnosis of metastatic colon cancer currently receiving chemotherapy who presents to the ER for generally feeling unwell today. He denies any objective fevers at home but has had nausea, vomiting, left-sided chest pain and left-sided abdominal pain. When he presented to this emergency department for flulike illness in April, a CT of the abdomen and pelvis showed the patient had metastatic colon cancer, he had a colonoscopy 2 days later showing colon tumor with metastasis to the liver, spleen and peritoneum. He is currently receiving chemotherapy. After his colonoscopy he was referred to [facility] for further heme/unk care. He had a stent placed in the abdomen although he does not know where. He had a port placed in the right upper chest. He received chemotherapy last 1 week ago and is due for it tomorrow. He has not had any significant cough or congestion. Related Data Home Medications ?Medication ?Instructions ?Recorded ?Confirmed dexamethasone 2 mg tablet 2 mg PO BID 06/26/24 06/26/24 dicyclomine 10 mg capsule 10 mg PO QID PRN abdominal pain 06/26/24 06/26/24 lidocaine-prilocaine 2.5 %-2.5 % 1 applic topical .Q30MIN 06/26/24 06/26/24 topical cream oxycodone-acetaminophen 10 mg-325 1 tab PO Q12H 06/26/24 06/26/24 mg tablet scopolamine base 1 mg over 3 days 1 patch topical Q3D 06/26/24 06/26/24 transdermal patch Allergies Allergy/AdvReac Type Severity Reaction Status Date / Time No Known Drug Allergies Allergy Verified 05/02/24 06:39 Opioid HPI Opioid Management Most Recent Opioid Data: Last Pain Scale 7 06/26/24 17:05 06/26/24 Last MAR Pain Assessment 06/26/24 17:05 Review of Systems ROS Constitutional Denies: fever or chills Ears, nose, mouth, and throat Denies: throat pain Cardiovascular Reports: chest pain Respiratory Denies: shortness of breath or cough Gastrointestinal Reports: abdominal pain, nausea and vomiting; Denies: diarrhea Genitourinary Denies: painful urination Musculoskeletal Denies: back pain Integumentary/Breast Denies: rash Neurological Denies: numbness in extremities or weakness in extremities Endocrine Denies: excessive urination Hematologic/Lymphatic Denies: easy bruising or easy bleeding PFSH [facility] Social History Within the past year, how often did you have a drink containing alcohol: never Score interpretation: A score less than 4 is consistent with normal alcohol consumption. Do you use any of these nicotine containing products: smokeless tobacco Non-prescribed substance use: denies use Previous occupational history: [employer] Highest level of school completed/degree received: high school graduate Little interest or pleasure in doing things: not at all Feeling down, depressed, or hopeless: not at all Exam Narrative Exam Narrative: Gen.: Awake, alert, in no distress, clammy Head: Normocephalic, atraumatic ENT: Moist mucous membranes Respiratory: No respiratory distress, lungs clear bilaterally Cardio: Tachycardic Gastrointestinal: Abdomen is soft, nondistended and tender to palpation in the left upper and lower abdomen Extremities: Moves extremities equally, no injuries noted Psych: Normal mood and affect Neuro: No focal neuro deficit Skin: Warm, sweaty, clammy Constitutional Vital Signs, click to edit/add: Last Vital Signs Temp 100 F 06/26/24 14:12 Pulse 132 H 06/26/24 17:20 Resp 33 H 06/26/24 17:20 BP 81/39 L 06/26/24 17:20 Pulse Ox 91 L 06/26/24 17:20 O2 Del Method Room Air 06/26/24 14:12 Course Vital Signs Vital signs: Vital Signs Temperature 99.8 F 06/26/24 13:59 Pulse Rate 152 H 06/26/24 13:59 Respiratory Rate 24 H 06/26/24 13:59 Blood Pressure 108/72 06/26/24 13:59 Pulse Oximetry 96 06/26/24 13:59 Temperature 100 F 06/26/24 14:12 Pulse Rate 132 H 06/26/24 17:20 Respiratory Rate 33 H 06/26/24 17:20 Blood Pressure 81/39 L 06/26/24 17:20 Pulse Oximetry 91 L 06/26/24 17:20 Oxygen Delivery Method Room Air 06/26/24 14:12 Medical Decision Making MDM Narrative Medical decision making narrative: Arrival to the emergency department, patient was noted to be significantly tachycardic, port was accessed and septic workup was initiated including respiratory swabs and blood cultures. Patient was given 2 L of IV fluids with some improvement of tachycardia. Temperature is 100.0 ?F. Patient was sent for CT angio of the chest and CT abdomen and pelvis. He was medicated twice with Dilaudid and Zofran for pain and comfort. Nasal cannula was placed at 2 L due to borderline hypoxia after pain was more controlled and narcotics were given. He remains awake and alert. 1600: Received a call from Dr. Donohue for radiology stating that the patient has bilateral pulmonary emboli, more significant in the left lung with minimal right heart strain. Given the patient's comorbidities, current treatment with chemotherapy and minimal right heart strain, case is discussed with hospitalist at this facility and we feel he may need higher level of care at [facility] where he received other previous cancer care and surgery. He and his family at bedside are comfortable with this. Heparin ordered for the patient with bolus and IV drip. 1637: Spoke with ICU physician, she requests IV vancomycin for the patient as well and will call back with acceptance from her attending after she speaks with vascular service as well. 1700: Patient accepted by Dr. Álvarez with ICU bed assignment 1715: Blood pressure is 70/41 and given the patient's complex medical condition and refractory hypotension after 3 total liters of IV fluids, Levophed was ordered for the patient, given through his port at 8 mcg per minute. He is also receiving IV heparin, he received IV Zosyn and vancomycin. Okay ground transport secured for 6:30 PM, however we feel the patient should be life fligh nima due to his bilateral PEs and potential septic shock. He remains awake and alert. He continues to have significant chest pain and additional fentanyl was given to avoid further hypotension. 1735: Blood pressure is 100/60 with O2 92% on 2LNC, awaiting ETA from flight crew. Critical care time 60 minutes for identification of critical life-threatening pulmonary embolism in addition to sepsis with no clear source and treatment of refractory hypotension Medical Records Medical records reviewed: Yes I reviewed the patient's medical records Lab Data Lab results reviewed: Yes I reviewed the patient's lab results Labs: Lab Results 06/26/24 06/26/24 06/26/24 Range/Units 14:20 14:21 14:25 WBC 1.5 L (4.0-11.0) 10^3/uL RBC 4.45 L (4.70-6.10) 10^6/uL Hgb 11.3 L (14.0-18.0) g/dL Hct 35.9 L (42.0-54.0) % MCV 80.7 (80.0-94.0) fL MCH 25.4 L (25.9-34.0) pg MCHC 31.5 (29.9-35.2) g/dL RDW 14.9 (11.0-15.0) % Plt Count 82 L (150-450) 10^3/uL MPV 8.7 L (9.5-13.5) fL Seg Neuts % (Manual) 26.0 L (43.0-75.0) Lymphocytes % (Manual) 46.0 (20.5-60.0) % Monocytes % (Manual) 24.0 H (1.7-12.0) % Eosinophils % (Manual) 2.0 (0.9-7.0) % Basophils % (Manual) 2.0 (0.2-2.0) % Neutrophils # (Manual) 0.39 L (1.4-6.5) 10^3/uL Lymphocytes # (Manual) 0.69 L (1.20-3.80) 10^3/uL Monocytes # (Manual) 0.36 (0.30-0.80) 10^3/uL Eosinophils # (Manual) 0.03 (0.00-0.70) 10^3/uL Basophils # (Manual) 0.03 (0.00-0.10) 10^3/uL Anisocytosis 1+ Microcytosis 1+ ESR 50 H (<=20) mm/hr PT 13.4 H (9.0-11.6) sec INR 1.30 VBG pH 7.439 H (7.330-7.430) VBG pCO2 37.1 L (40.0-52.0) mmHg Sodium 132 L (136-145) mmol/L Potassium 3.4 L (3.5-5.1) mmol/L Chloride 97 L (98-107) mmol/L Carbon Dioxide 25.8 (21.0-32.0) mmol/L Anion Gap 12.6 BUN 15.0 (7.0-18.0) mg/dL Creatinine 1.42 H (0.70-1.30) mg/dL Est GFR ( Amer) >60 (>=60 mL/min/1.73m^2) Est GFR (Non-Af Amer) 53 L (>=60 mL/min/1.73m^2) BUN/Creatinine Ratio 10.6 Glucose 111 H (74-106) mg/dL Lactate 3.1 H* (0.4-2.0) mmol/L Calcium 7.8 L (8.5-10.1) mg/dL Magnesium 1.6 L (1.8-2.4) mg/dL Total Bilirubin 1.1 H (0.2-1.0) mg/dL AST 35 (15-37) U/L ALT 51 (16-63) U/L Alkaline Phosphatase 123 H (46-116) U/L Troponin I High Sens 8.0 (4.0-76.1) pg/mL C-Reactive Protein 5.61 H (<=0.50) mg/dL Total Protein 5.8 L (6.4-8.2) g/dL Albumin 2.3 L (3.4-5.0) g/dL Globulin 3.5 g/dL Albumin/Globulin Ratio 0.7 Lipase 35.0 (16.0-77.0) U/L Influenza Type A Ag Negative Influenza Type B Ag Negative RSV Antigen Not detected (NOT DETECTE) SARS-CoV-2 Ag (CV2AG) Negative (NEGATIVE) Imaging Data CT scan - chest: Attestation: I have reviewed the pertinent imaging results. Radiologist's impression: ITS Impressions Chest CTA 06/26/24 14:04 IMPRESSION: 1. Bilateral pulmonary emboli; large burden on right, moderate on left. Minimal heart strain. 2. Right greater than left bibasilar atelectasis versus infiltrates. 3. Liver lesions suggestive of metastatic disease; slightly decreased in size. 4. Irregular wall thickening of splenic flexure of colon compatible with neoplasm; slightly decreased in volume. Intraluminal stent is in place. Findings called to the emergency department to be relayed to Dr. Armstrong. Electronically authenticated by: TATIANA DONOHUE Date: 06/26/2024 15:51 Abdomen/Pelvis CT 06/26/24 14:09 IMPRESSION: 1. Bilateral pulmonary emboli; large burden on right, moderate on left. Minimal heart strain. 2. Right greater than left bibasilar atelectasis versus infiltrates. 3. Liver lesions suggestive of metastatic disease; slightly decreased in size. 4. Irregular wall thickening of splenic flexure of colon compatible with neoplasm; slightly decreased in volume. Intraluminal stent is in place. Findings called to the emergency department to be relayed to Dr. Armstrong. Electronically authenticated by: TATIANA DONOHUE Date: 06/26/2024 15:51 ECG Data Attestation: I personally reviewed and interpreted this ECG as follows: (Sinus tachycardia at a rate of 132, no acute ST elevation or ectopy. EKG reviewed by attending physician.) Critical Care Time Critical Care Time Critical Care Time: Yes Total Critical Care Time: 60 Attestation: Critical care time 60 minutes for identification of critical illness, fluid resuscitation with Levophed and treatment of PE, sepsis with transfer to tertiary care facility Discharge Plan Discharge Chief Complaint: Abdominal Pain Clinical Impression: Pulmonary embolism, Acute hypotension, Hypoxia, Sepsis, Chest pain Patient Disposition: [facility] Time of Disposition Decision: 17:36 Discharge Location: [facility] Condition: Critical Mode of Transportation: Life Flight Prescriptions / Home Meds: No Action dexamethasone 2 mg tablet 2 mg PO BID dicyclomine 10 mg capsule 10 mg PO QID PRN (Reason: abdominal pain) lidocaine-prilocaine 2.5-2.5 % cream 1 applic topical .Q30MIN oxycodone-acetaminophen 10-325 mg tablet 1 tab PO Q12H scopolamine base 1 mg over 3 days patch 3 day 1 patch topical Q3D Print Language: Prydeinig Referrals: Physician,Non-Staff, MD [Primary Care Provider] - 1 week
[2024-06-26] MEDS: 0.9 % SODIUM CHLORIDE 1,000 ML 999 ML IV (14:26)
[2024-06-26] MEDS: HYDROMORPHONE HCL 1 MG/ML CARTRIDGE IV (14:35)
[2024-06-26] MEDS: ONDANSETRON PF 4 MG/2 ML VIAL IV ×2 (14:36→15:16)
[2024-06-26 14:37] LABS: PCO2 VBG 37.1 mmHg (40.0-52.0); pH VBG 7.439 (7.330-7.430)
[2024-06-26 14:55] LABS: Prothrombin Time 13.4 sec (9.0-11.6)
[2024-06-26 14:56] LABS: Hematocrit 35.9 % (42.0-54.0); Hemoglobin 11.3 g/dL (14.0-18.0); Mean Corpuscular HGB Conc 31.5 g/dL (29.9-35.2); Mean Corpuscular Hemoglobin 25.4 pg (25.9-34.0); Mean Corpuscular Volume 80.7 fL (80.0-94.0); Mean Platelet Volume 8.7 fL (9.5-13.5); Platelet Count 82 10^3/uL (150-450); Red Blood Count 4.45 10^6/uL (4.70-6.10); Red Cell Distribution Width 14.9 % (11.0-15.0); White Blood Count 1.5 10^3/uL (4.0-11.0)
[2024-06-26 14:56] LABS: Influenza Virus A Antigen Negative; Influenza Virus B Antigen Negative; Internal Control Within Normal Limits; Respiratory Syncytial Virus Not Detected (NOT DETECTE); SARS-CoV-2 Ag NEGATIVE (NEGATIVE)
[2024-06-26 14:58] LABS: Alanine Aminotransferase 51 U/L (16-63); Albumin Globulin Ratio 0.7; Albumin Level 2.3 g/dL (3.4-5.0); Alkaline Phosphatase 123 U/L (46-116); Anion Gap 12.6; Aspartate Amino Transferase 35 U/L (15-37); BUN Creatinine Ratio 10.6; Bilirubin Total 1.1 mg/dL (0.2-1.0); Calcium 7.8 mg/dL (8.5-10.1); Carbon Dioxide 25.8 mmol/L (21.0-32.0); Chloride 97 mmol/L (98-107); Estimated GFR (African America >60 (>=60 mL/min/1.73m^2); Estimated GFR (Non-African Ame 53 (>=60 mL/min/1.73m^2); Globulin 3.5 g/dL; Glucose 111 mg/dL (74-106); Magnesium 1.6 mg/dL (1.8-2.4); Potassium 3.4 mmol/L (3.5-5.1); Sodium 132 mmol/L (136-145); Total Protein 5.8 g/dL (6.4-8.2)
[2024-06-26 15:00] LABS: C Reactive Protein 5.61 mg/dL (<=0.50)
[2024-06-26 15:04] LABS: Erythrocyte Sedimentation Rate 50 mm/hr (<=20)
[2024-06-26 15:06] LABS: Lactate/Lactic Acid 3.1 mmol/L (0.4-2.0)
[2024-06-26] MEDS: HYDROMORPHONE HCL 0.5 MG/0.5 ML SYRINGE IV (15:16)
[2024-06-26 15:17] LABS: Anisocytosis 1+; Basophils Abs Manual 0.03 10^3/uL (0.00-0.10); Eosinophils Absolute Manual 0.03 10^3/uL (0.00-0.70); Lymphocytes Absolute Manual 0.69 10^3/uL (1.20-3.80); Microcytosis 1+; Monocytes Absolute Manual 0.36 10^3/uL (0.30-0.80); Segmented Neut Absolute Manual 0.39 10^3/uL (1.4-6.5)
[2024-06-26] MEDS: 0.9 % SODIUM CHLORIDE 1,000 ML 1000 ML IV ×2 (15:17→17:19)
[2024-06-26] MEDS: HEPARIN SODIUM (PORCINE) 5,000 UNIT/ML VIAL 7100 UNIT IV (16:10)
[2024-06-26] MEDS: HEPARIN SODIUM,PORCINE/D5W 25,000 UNIT/500 ML IV.SOLN 30 UNIT IV (16:11)
[2024-06-26] MEDS: ACETAMINOPHEN 500 MG TABLET 1000 MG PO (16:24)
[2024-06-26] MEDS: PIPERACILLIN SODIUM/TAZOBACTAM 4.5 GM in 0.9 % SODIUM CHLORIDE 50 ML IV (16:25)
[2024-06-26] MEDS: FENTANYL CITRATE/PF 100 MCG/2 ML VIAL IV (16:33)
[2024-06-26] MEDS: FENTANYL CITRATE/PF 100 MCG/2 ML VIAL 50 MCG IV ×2 (17:05→17:55)
[2024-06-26] MEDS: NOREPINEPHRINE BITARTRATE/D5W 4 MG/250 ML PREMIX 30 MG IV (17:19)
[2024-06-26] MEDS: VANCOMYCIN HCL 1,500 MG in 0.9 % SODIUM CHLORIDE 500 ML 250 MG IV (17:31)
[2024-06-26 17:56] LABS: Lactate/Lactic Acid 2.7 mmol/L (0.4-2.0)
[2024-06-27 03:33] LABS: A. calcoaceticus-baumannii Cpx NOT DETECTED (NOT DETECTE); Bacteroides fragilis NOT DETECTED (NOT DETECTE); Candida albicans NOT DETECTED (NOT DETECTE); Candida auris NOT DETECTED (NOT DETECTE); Candida glabrata NOT DETECTED (NOT DETECTE); Candida krusei NOT DETECTED (NOT DETECTE); Candida parapsilosis NOT DETECTED (NOT DETECTE); Enterobacter cloacae complex NOT DETECTED (NOT DETECTE); Enterobacterales NOT DETECTED (NOT DETECTE); Enterococcus faecalis NOT DETECTED (NOT DETECTE); Enterococcus faecium NOT DETECTED (NOT DETECTE); Haemophilus influenzae NOT DETECTED (NOT DETECTE); Klebsiella aerogenes NOT DETECTED (NOT DETECTE); Klebsiella pneumoniae group NOT DETECTED (NOT DETECTE); Listeria monocytogenes NOT DETECTED (NOT DETECTE); Neisseria meningitidis NOT DETECTED (NOT DETECTE); Proteus spp. NOT DETECTED (NOT DETECTE); Pseudomonas aeruginosa NOT DETECTED (NOT DETECTE); Salmonella spp. NOT DETECTED (NOT DETECTE); Serratia marcescens NOT DETECTED (NOT DETECTE); Staphylococcus epidermidis NOT DETECTED (NOT DETECTE); Staphylococcus lugdunensis NOT DETECTED (NOT DETECTE); Staphylococcus spp. NOT DETECTED (NOT DETECTE); Stenotrophomonas maltophilia NOT DETECTED (NOT DETECTE); Streptococcus agalactiae NOT DETECTED (NOT DETECTE); Streptococcus pneumoniae NOT DETECTED (NOT DETECTE); Streptococcus pyogenes NOT DETECTED (NOT DETECTE); Streptococcus spp. NOT DETECTED (NOT DETECTE)
[2024-06-27 03:34] LABS: Candida tropicalis NOT DETECTED (NOT DETECTE); Cryptococcus neoformans/gattii NOT DETECTED (NOT DETECTE)
[2024-06-27 04:50] LABS: Source BLOOD
== END 2024-06-26 17:55 | disposition short-term general hospital (02) ==
PROVIDERS: Physician Assistant; Emergency Provider Emergency Medicine
DX: A41.9 Sepsis, unspecified organism (principal); I26.94 Multiple subsegmental thrombotic pulmonary emboli without acute cor pulmonale; R09.02 Hypoxemia; C18.9 Malignant neoplasm of colon, unspecified; C78.7 Secondary malignant neoplasm of liver and intrahepatic bile duct; C78.89 Secondary malignant neoplasm of other digestive organs; I95.89 Other hypotension; C78.6 Secondary malignant neoplasm of retroperitoneum and peritoneum; Z79.60 Long term (current) use of unspecified immunomodulators and immunosuppressants; F17.290 Nicotine dependence, other tobacco product, uncomplicated; R50.9 Fever, unspecified; R07.9 Chest pain, unspecified
CPT/HCPCS: 36415; 36591; 51702; 71275; 74177; 80053; 82800; 83605; 83690; 83735; 84484; 85007; 85027; 85610; 85652; 86140; 87040; 87150; 87420; 87804; 87811; 93005; 96361; 96365; 96368; 96375; 96376; 99285; J1171; J1644; J2405; J2543; J3010; J3370; Q9967